=== PATIENT | female | born 1935 | race Caucasian/White ===

== ENCOUNTER 2016-12-15 06:47 | Inpatient (IN) ==
[2016-12-11 13:48] LABS: Basophils # (Auto) 0 K/mcL (0.0-0.3); Basophils % (Auto) 0.5 % (0.0-2.0); Eosinophils # (Auto) 0.1 K/mcL (0.0-0.7); Eosinophils % (Auto) 1.8 % (0.0-7.0); Granulocytes % (Auto) 77.8 % (38.0-78.0); Lymphocytes # (Auto) 0.9 K/mcL (1.5-4.8); Lymphocytes % (Auto) 11.2 % (15.5-49.0); Mean Cell Volume 88.3 fL (80.0-100.0); Mean Corpuscular HGB Conc 32.6 g/dL (31.0-36.0); Mean Corpuscular Hemoglobin 28.8 pg (26.0-34.0); Monocytes # (Auto) 0.7 K/mcL (0.1-0.9); Monocytes % (Auto) 8.7 % (1.0-12.0); Platelet Count 301 K/mcL (140-440); RBC 4.34 M/mcL (4.00-5.20); Red Cell Distribution Width 15.7 % (11.5-14.5)
[2016-12-11 14:05] LABS: Appearance,Urine CLEAR; Bilirubin,Urine NEG (NEG); Color,Urine YELLOW; Glucose,Urine (UA) NEGATIVE (NEG); Leukocyte Esterase,Urine NEG /uL (NEG); Nitrate,Urine NEG (NEG); Protein,Urine NEG (NEG); Specific Gravity,Urine 1.013 (1.000-1.035); Urine Blood NEG mg/dL (<0.03); Urobilinogen,Urine NEG (NEG)
[2016-12-11 14:06] LABS: Blood Urea Nitrogen 10 mg/dl (8-23)
[~2016-12-15 06:47] MED LIST: ACETAMINOPHEN 500 MG TABLET PO SCH; CELECOXIB 200 MG CAPSULE PO SCH; PREGABALIN 75 MG CAPSULE PO SCH; ceFAZolin 1 GM VIAL IV SCH; oxyCODONE 10 MG TAB.ER.12H PO SCH
[2016-12-15] MEDS ORDERED: GLYCOPYRROLATE 0.2 MG/ML VIAL IV ONE (11:15)
[2016-12-15] MEDS ORDERED: ePHEDrine 50 MG/ML AMPUL IV ONE (11:15)
[2016-12-15] MEDS ORDERED: PHENYLEPHRINE 10 MG/ML VIAL IV ONE (11:15)
[2016-12-15] MEDS ORDERED: fentaNYL 250 MCG/5 ML VIAL IV ONE (11:15)
[2016-12-15] MEDS ORDERED: MIDAZOLAM 5 MG/5 ML VIAL IV ONE (11:15)
[2016-12-15] MEDS ORDERED: ONDANSETRON 4 MG/2 ML VIAL IV ONE (11:15)
[2016-12-15] MEDS ORDERED: DEXAMETHASONE 10 MG/ML VIAL IV ONE (11:15)
[2016-12-15] MEDS ORDERED: PROPOFOL 200 MG/20 ML VIAL IV ONE (11:15)
[2016-12-15] MEDS ORDERED: LIDOCAINE HCL/PF 100 MG/5 ML SYRINGE IV ONE (11:15)
[2016-12-15] MEDS ORDERED: GENTAMICIN SULFATE 800 MG/20 ML VIAL IR ONE (11:39)
[2016-12-15] MEDS ORDERED: LACTATED RINGERS 250 ML IV PRN (12:25)
[2016-12-15] MEDS ORDERED: METHOCARBAMOL 1,000 MG/10 ML VIAL IV PRN (12:25)
[2016-12-15] MEDS ORDERED: MEPERIDINE 25 MG/ML SYRINGE IV PRN (12:25)
[2016-12-15] MEDS ORDERED: IPRATROPIUM/ALBUTEROL 3 ML AMPUL.NEB NEB PRN (12:25)
[2016-12-15] MEDS ORDERED: fentaNYL 100 MCG/2 ML VIAL IV PRN (12:25)
[2016-12-15] MEDS ORDERED: ACETAMINOPHEN 1,000 MG/100 ML BOTTLE IV ONE (12:25)
[2016-12-15] MEDS ORDERED: BENZOCAINE/MENTHOL 1 LOZENGE PO PRN ×2 (12:25→13:54)
[2016-12-15] MEDS ORDERED: diphenhydrAMINE 50 MG/ML VIAL IV PRN (12:25)
[2016-12-15] MEDS ORDERED: ONDANSETRON 4 MG/2 ML VIAL IV PRN ×2 (12:25→13:54)
[2016-12-15] MEDS ORDERED: NALOXONE HCL 0.4 MG/ML VIAL IV PRN (12:25)
[2016-12-15] MEDS ORDERED: FLUMAZENIL 0.1 MG/ML ML IV PRN (12:25)
[2016-12-15] MEDS ORDERED: LACTATED RINGERS 1,000 ML IV SCH (12:30)
[2016-12-15] MEDS ORDERED: TEMAZEPAM 15 MG CAPSULE PO PRN (13:54)
[2016-12-15] MEDS ORDERED: MAGNESIUM HYDROXIDE 30 ML ORAL.SUSP PO PRN (13:54)
[2016-12-15] MEDS ORDERED: POLYETHYLENE GLYCOL 3350 17 GM PACKET PO PRN (13:54)
[2016-12-15] MEDS ORDERED: KETOROLAC 15 MG/ML VIAL IV PRN (13:54)
[2016-12-15] MEDS ORDERED: FLEETS ADULT ENEMA PR PRN (13:54)
[2016-12-15] MEDS ORDERED: IBUPROFEN 400 MG TABLET PO PRN (13:54)
[2016-12-15] MEDS ORDERED: BISACODYL 10 MG SUPP.RECT PR PRN (13:54)
[2016-12-15] MEDS ORDERED: TRANEXAMIC ACID 1,000 MG/10 ML VIAL IV ONE (13:54)
[2016-12-15] MEDS ORDERED: HYDROmorphone 2 MG/ML SYRINGE IV PRN (13:54)
--- NOTE | 2016-12-15 13:54 | Brief Operative Note ---
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
[2016-12-15] MEDS ORDERED: WARFARIN 2 MG TABLET PO SCH (14:00)
--- NOTE | 2016-12-15 15:14 | XRay Report ---
HISTORY: Reason for Exam:Post-Op Total Hip FINDINGS: There is a comminuted intertrochanteric fracture the proximal femur. No callus is formed. There is a well-positioned left total hip prosthesis. The prosthesis has been revised since the earlier intraoperative film done earlier on the same date. In the right hip there is arthritis with a ring of spurs on the margin of the femoral head and mild narrowing of the medial aspect of the joint. No prior studies available for comparison. IMPRESSION: Well-positioned left hip prosthesis Comminuted fracture of the proximal left femur Interpreted and Authenticated by: Virgilio Eubanks 12/15/16
[2016-12-15] MEDS: 0.45 % SODIUM CHLORIDE 1,000 ML IV SCH (15:35)
[2016-12-15] MEDS: ceFAZolin 1 GM VIAL IV SCH (16:17)
[2016-12-15] MEDS: 0.9 % SODIUM CHLORIDE 10 ML SYRINGE IV SCH (16:18)
[2016-12-15] MEDS: WARFARIN 2.5 MG TABLET PO SCH (16:19)
[2016-12-15] MEDS: ASPIRIN 81 MG TAB.CHEW PO SCH (17:53)
[2016-12-15] MEDS: PRAMIPEXOLE 0.25 MG TABLET PO SCH (20:09)
[2016-12-15] MEDS: SENNOSIDES 1 TABLET PO SCH (20:09)
[2016-12-15] MEDS: DOCUSATE SODIUM 100 MG CAPSULE PO SCH (20:09)
[2016-12-15] MEDS: METOPROLOL TARTRATE 25 MG TABLET PO SCH (20:09)
[2016-12-15] MEDS: SIMVASTATIN 20 MG TABLET PO SCH (20:09)
[2016-12-15] MEDS ORDERED: TEMAZEPAM 15 MG CAPSULE PO SCH (21:00)
[2016-12-15] MEDS ORDERED: ASPIRIN 325 MG ENTERIC COATED TABLET PO SCH (21:00)
[2016-12-16] MEDS: HYDROCODONE/APAP 7.5/325MG TABLET PO PRN ×4 (01:32→19:15)
[2016-12-16] MEDS: 0.45 % SODIUM CHLORIDE 1,000 ML IV SCH ×2 (01:33→11:50)
[2016-12-16] MEDS ORDERED: ceFAZolin 1 GM VIAL ONE (01:40)
[2016-12-16] MEDS: ceFAZolin 1 GM VIAL IV SCH (01:40)
[2016-12-16] MEDS: 0.9 % SODIUM CHLORIDE 10 ML SYRINGE IV SCH ×4 (01:53→22:30)
--- NOTE | 2016-12-16 07:14 | Orthopedic Progress Note ---
Subjective Patient information: Note initiated : 12/16/16 at 7:13 am Service Date, if different from initiated Date: [] Patient: Norma Mclaughlin 81 y/o F admitted on 12/15/16 for Left Total Hip Arthroplasty. Chief Complaint: [Pt is stable this morning on post operative day 1 without any significant concerns or complaints. Patients vital signs have remained stable. Patients dressing is dry and exhibits a grossly intact neurovascular and neuromotor exam. Patients 10 point ROS is otherwise negative. ] Objective Vital signs: Vital Signs Temp Pulse Resp BP Pulse Ox 12/16/16 04:34 95 12/16/16 04:00 97.8 F 64 14 134/70 95 12/16/16 03:00 97 12/16/16 01:00 97 12/15/16 23:44 97.4 F 70 14 100/62 97 12/15/16 23:00 97 12/15/16 20:23 97 12/15/16 20:22 97 12/15/16 20:00 97.6 F 84 14 112/67 97 12/15/16 19:29 97 12/15/16 17:05 101/61 96 12/15/16 17:00 96 12/15/16 16:35 101/64 98 12/15/16 16:05 101/64 97 12/15/16 15:54 96 12/15/16 15:50 96/63 96 12/15/16 15:35 110/74 97 12/15/16 15:20 124/78 96 12/15/16 15:05 121/60 96 12/15/16 14:54 97.9 F 80 14 145/84 96 12/15/16 14:40 97.9 F 80 15 140/73 96 12/15/16 14:25 72 12 130/70 100 12/15/16 14:20 72 12 120/65 96 12/15/16 14:15 70 12 114/55 97 12/15/16 14:10 97.0 F 67 12 100/53 97 Intake and Output 12/15/16 12/16/16 12/16/16 21:59 05:59 13:59 Intake Total 0 / 1910 1796 Output Total 600 / 600 75 / 75 Balance 1310 / 1310 1796 -75 / -75 Intake: IV 200 / 200 997 / 997 Sodium Chloride 0.45% 1, 997 / 997 000 ml @ 100 mls/hr IV . Q10H GARY Rx#:[id number] Lactated Ringers 1,000 ml 200 / 200 @ 20 mls/hr IV .Q24H GARY Rx#:[id number] Oral 210 / 210 800 / 800 IV - Manual Only 1500 / 1500 Output: Void Amount 75 / 75 Estimated Blood Loss 600 / 600 Other: # Voids 1 Weight 160 lb 8 oz Intake & Output: Intake & Output 12/15/16 12/16/16 12/16/16 21:59 05:59 13:59 Intake Total 1910 / 1910 1797 / 1797 Output Total 600 / 600 75 / 75 Balance 1310 / 1310 1797 / 1797 -75 / -75 Weight 160 lb 8 oz Intake: IV 200 / 200 997 / 997 Sodium Chloride 0.45% 1, 997 / 997 000 ml @ 100 mls/hr IV . Q10H GARY Rx#:[id number] Lactated Ringers 1,000 ml 200 / 200 @ 20 mls/hr IV .Q24H GARY Rx#:[id number] Oral 210 / 210 800 / 800 IV - Manual Only 1500 / 1500 Output: Void Amount 75 / 75 Estimated Blood Loss 600 / 600 Other: # Voids 1 Incision: Yes healing Incision clean and dry: Yes Dressing: Yes clean, Yes dry Weight bearing status: full Neurological exam IM: Yes motor sensory intact, Yes neurovascular intact Extremities exam IM: Yes Foot pink and warm, Yes neurovascular intact - Labs CBC & BMP: 12/16/16 05:30 12/11/16 11:55 Labs: Orthopedic Labs 12/15/16 12/11/16 07:32 11:56 POC PT 14.6 H PT 18.9 H POC INR 1.2 INR 1.5 H APTT 39 H 12/16/16 12/11/16 05:30 11:56 Hgb 12.5 Hct 27.2 L 38.3 Assessment and Plan (1) Hx of total hip arthroplasty Patient has been educated regarding wound care and dressings, follow up recommendations, and medication use. We will f/u with the patient within 2-3 weeks for wound check. Status: Acute
--- NOTE | 2016-12-16 07:17 | Discharge Summary ---
Ortho Discharge - NEEL - Patient Instructions Diet: Regular Diet Activity: activity as tolerated, weight bearing as tolerated Total Hip Protocol: Follow activity instructions as provided by Physical Therapy. Dressing Care: May shower in 3 days, Aquacel Ag - leave on for 5 days Patient Education: Total Hip Replacement (DC) Additional Instructions: Discharge Instructions: Do the exercises at home that physical therapy gave you. Take your prescription, photo ID, insurance cards, and current medication list with you to your first physical therapy appointment. Take your prescription to pickle water pump operator any medication or equipment (such as walker, crutches, toilet riser or C.P.M.) Wear comfortable clothing for your physical therapy. Weight bearing as tolerated. If you have the Aquacel Ag dressing, leave in place for 7 days then remove. If dressing becomes soiled (turns black), remove and use gauze 4x4 dressing and silvasorb ointment and change daily. Keep incision clean and dry. If you have Dermabond (a dressing with a mesh-like appearance), leave open to air. You may start showering on post op day #2. The Dermabond dressing can get wet, do not scrub dressing. Pat dry. To avoid constipation while taking any narcotic pain medication, take an over the counter stool softener/laxative. Use your Cryocuff or ice packs as directed, on for 20 minutes at a time throughout the day. This and elevation will help with pain and swelling. Call your physician for fevers above 100.5 or pain not controlled by medication. Your prescriptions are with your discharge information. Some medications were electronically transmitted to your pharmacy of choice. - Problem Maintenance (1) Hx of total hip arthroplasty Status: Acute - Follow Up Plan Follow Up Appointments: Parish Lorenzana MD [Physician] - 12/30/16 1:40 pm Disposition: Xfer SNF Prognosis: Good Rehab Potential: Fair I certify that the patient requires SNF services: Yes Overall status at discharge: patient is progressing back to baseline - Orders For Discharge Prescriptions: Docusate Sodium [Colace] 100 mg PO BID #60 capsule Hydrocodone/APAP 7.5/325Mg [[place] 7.5/325Mg] 1 - 2 tab PO Q4HP PRN #75 tablet PRN Reason: Pain
[2016-12-16] MEDS: OMEPRAZOLE 20 MG CAPSULE PO SCH (07:29)
[2016-12-16] MEDS: AMIODARONE HCL 200 MG TABLET PO SCH (08:09)
[2016-12-16] MEDS ORDERED: POLYETHYLENE GLYCOL 3350 17 GM PACKET PO SCH (09:00)
[2016-12-16] MEDS: LORATADINE 10 MG TABLET PO SCH (09:31)
[2016-12-16] MEDS: ASPIRIN 81 MG TAB.CHEW PO SCH (09:32)
[2016-12-16] MEDS: METOPROLOL TARTRATE 25 MG TABLET PO SCH ×2 (09:32→19:15)
[2016-12-16] MEDS: DOCUSATE SODIUM 100 MG CAPSULE PO SCH ×2 (09:32→19:15)
[2016-12-16] MEDS: SERTRALINE 50 MG TABLET PO SCH (09:40)
[2016-12-16] MEDS ORDERED: WARFARIN 2 MG TABLET PO SCH (14:00)
[2016-12-16] MEDS: SENNOSIDES 1 TABLET PO SCH (19:14)
[2016-12-16] MEDS: PRAMIPEXOLE 0.25 MG TABLET PO SCH (19:14)
[2016-12-16] MEDS: SIMVASTATIN 20 MG TABLET PO SCH (19:15)
[2016-12-16] MEDS: traMADol 50 MG TABLET PO PRN (22:29)
[2016-12-17] MEDS: 0.45 % SODIUM CHLORIDE 1,000 ML IV SCH ×3 (01:05→14:20)
[2016-12-17] MEDS: ACETAMINOPHEN 325 MG TABLET PO PRN (02:18)
[2016-12-17] MEDS: 0.9 % SODIUM CHLORIDE 10 ML SYRINGE IV SCH ×3 (06:30→20:37)
--- NOTE | 2016-12-17 07:07 | Orthopedic Progress Note ---
Subjective Patient information: Note initiated : 12/17/16 at 7:05 am Service Date, if different from initiated Date: [] Patient: Norma Mclaughlin 81 y/o F admitted on 12/15/16 for Left Total Hip Arthroplasty. Chief Complaint: [STILL CONFUSSED AND NEW XRAY TO SEE IF HIP DISLOCATED DONE] Objective Vital signs: Vital Signs Temp Pulse Pulse Pulse Resp BP Pulse Ox 12/17/16 05:38 93 12/17/16 04:00 97.1 F 69 12 101/59 91 12/17/16 02:00 84 69 12/16/16 23:43 97.7 F 75 12 135/67 92 12/16/16 22:00 92 12/16/16 20:00 97.5 F 80 12 140/63 92 12/16/16 17:00 94 12/16/16 15:47 97.4 F 16 127/73 98 12/16/16 15:00 95 12/16/16 13:00 95 12/16/16 12:00 97.7 F 20 134/75 95 12/16/16 11:00 88 L 12/16/16 09:00 97 12/16/16 08:00 97 12/16/16 07:32 97.6 F 84 14 112/67 97 12/16/16 07:24 92 12/16/16 07:23 60 92 Intake and Output 12/16/16 12/17/16 12/17/16 21:59 05:59 13:59 Intake Total 0 / 0 200 / 200 Output Total 850 / 850 1200 / 1200 250 / 250 Balance -850 / -850 -1000 / -1000 -250 / -250 Intake: Oral 0 / 0 200 / 200 Output: Urine Catheter Amount 400 / 400 250 / 250 Void Amount 850 / 850 800 / 800 Uretheral (Rashid) 650 / 650 Other: Weight 169 lb Intake & Output: Intake & Output 12/16/16 12/17/16 12/17/16 21:59 05:59 13:59 Intake Total 0 / 0 200 / 200 Output Total 850 / 850 1200 / 1200 250 / 250 Balance -850 / -850 -1000 / -1000 -250 / -250 Weight 169 lb Intake: Oral 0 / 0 200 / 200 Output: Urine Catheter Amount 400 / 400 250 / 250 Void Amount 850 / 850 800 / 800 Uretheral (Rashid) 650 / 650 Incision: Yes healing Incision clean and dry: Yes Dressing: Yes clean Weight bearing status: full Neurological exam IM: Yes abnormal gait Extremities exam IM: Yes Foot pink and warm (CONFUSED WITH NEW XRAYS SHOWING NO HIP DISLOCATION MUST US ABD PILLOW) - Labs CBC & BMP: 12/16/16 05:30 12/11/16 11:55 Labs: Orthopedic Labs 12/15/16 12/11/16 07:32 11:56 POC PT 14.6 H PT 18.9 H POC INR 1.2 INR 1.5 H APTT 39 H 12/16/16 12/11/16 05:30 11:56 Hgb 12.5 Hct 27.2 L 38.3
[2016-12-17] MEDS: OMEPRAZOLE 20 MG CAPSULE PO SCH (07:30)
--- NOTE | 2016-12-17 08:04 | XRay Report ---
HISTORY: Reason for Exam:Possible left hip dislocation FINDINGS: There is a well-positioned left total hip prosthesis. There is no dislocation. There is a subacute ununited comminuted intertrochanteric fracture which also extends into the subtrochanteric region. In the proximal shaft of the femur there is a partially healed transverse fracture. The fractures have not changed in appearance since recent study done on 12/15/16. No new fracture has developed. There is moderate arthritis in the right hip. Gas is present in the soft tissues in left upper thigh due to the recent surgery. IMPRESSION: Stable alignment of the comminuted fracture in the proximal femur No dislocation or new fracture since 12/15/16 Interpreted and Authenticated by: Virgilio Eubanks 12/17/16
[2016-12-17] MEDS: AMIODARONE HCL 200 MG TABLET PO SCH (10:00)
[2016-12-17] MEDS: DOCUSATE SODIUM 100 MG CAPSULE PO SCH ×2 (10:00→20:37)
[2016-12-17] MEDS: METOPROLOL TARTRATE 25 MG TABLET PO SCH ×2 (10:00→20:37)
[2016-12-17] MEDS: LORATADINE 10 MG TABLET PO SCH (10:00)
[2016-12-17] MEDS: SERTRALINE 50 MG TABLET PO SCH (10:00)
[2016-12-17] MEDS: ASPIRIN 81 MG TAB.CHEW PO SCH (10:00)
[2016-12-17] MEDS: WARFARIN 2.5 MG TABLET PO SCH (14:20)
[2016-12-17] MEDS: traMADol 50 MG TABLET PO PRN ×2 (16:40→22:45)
[2016-12-17] MEDS: PRAMIPEXOLE 0.25 MG TABLET PO SCH (20:37)
[2016-12-17] MEDS: SIMVASTATIN 20 MG TABLET PO SCH (20:37)
[2016-12-17] MEDS: SENNOSIDES 1 TABLET PO SCH (20:37)
[2016-12-18] MEDS: ACETAMINOPHEN 325 MG TABLET PO PRN (03:33)
[2016-12-18] MEDS: 0.9 % SODIUM CHLORIDE 10 ML SYRINGE IV SCH ×2 (05:13→05:17)
[2016-12-18] MEDS: OMEPRAZOLE 20 MG CAPSULE PO SCH (07:40)
[2016-12-18] MEDS: SERTRALINE 50 MG TABLET PO SCH (09:04)
[2016-12-18] MEDS: ASPIRIN 81 MG TAB.CHEW PO SCH (09:05)
[2016-12-18] MEDS: AMIODARONE HCL 200 MG TABLET PO SCH (09:05)
[2016-12-18] MEDS: METOPROLOL TARTRATE 25 MG TABLET PO SCH (09:06)
[2016-12-18] MEDS: LORATADINE 10 MG TABLET PO SCH (09:06)
[2016-12-18] MEDS: DOCUSATE SODIUM 100 MG CAPSULE PO SCH (09:06)
--- NOTE | 2016-12-26 13:02 | Operative Note ---
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 PROCEDURE: Left hip hardware removal which consisted of a Park and Nephew reconstruction nail as well as a revision cemented stem and cup and total hip arthroplasty. SURGEON: Parish Lorenzana MD RN ED: Enzo Elliott PA-C ANESTHESIA: General LMA anesthesia. COMPLICATIONS: None. DESCRIPTION OF PROCEDURE: The patient was brought to the operating room and put to sleep with general LMA anesthesia. Once we confirmed the operative side was the left side with initials, timeout x-rays and consent form we then proceeded with a total hip arthroplasty and hardware removal. She was sterilely prepped and draped left lower extremity. We made a superior posterior approach to the hip and identified the nail and removed the set screw and then the two screws in the head by the cutting the neck. Once this was done, we removed the distal screw and then tapped out the stem. We irrigated. We then exposed the joint. We removed some long osteophytes anteriorly heterotopic bone, reamed the cup up to a size 53 cup. We implanted a 54 cup with screws, 20 and a 25 mm screw and a dual mobility liner. We broached up for the size 7 stem. I took an x-ray with the size 7 stem. This seemed to give good leg length and alignment. At this point, we proceeded with cementing a stem. We cemented a long curved 200 mm size 7 cemented stem for the left hip with 20 degrees of anteversion. We then trialed the +10 neck length. This seemed to be appropriate, though she would sublux and this started to come out of the joint when an abducted past midline at 45 degrees. At that point we took more bone and spurs anteriorly, repositioned the cup in 25 degrees of anteversion, or 30 degrees and 40 degrees of inclination. We placed two more screws, a 25 mm and a 40 mm screw which gave good fixation and placed a 10 degree hooded poly liner and then trialed the 36 mm +10 neck length. This seemed to be very stable up to about 50 to 60 degrees with a very firm endpoint. With the knee straight ahead it could go up to 90 degrees. We irrigated thoroughly. We then placed a +10 neck length, 36 mm ball and repaired the capsule for additional constraint. The patient tolerated this well. There was no complication. We irrigated thoroughly, closed the fascial layer with a Stratafix suture and the skin was closed with 0 Vicryl and 2-0 Vicryl and jessica superficially. The other wounds were closed with 2-0 Vicryl and jessica and patient tolerated this well. The patient lost about 200 mL of blood. RBH:rex Job ID: [id number] Doc ID: [id number] Parish Lorenzana MD
--- NOTE | 2017-01-01 12:06 | Discharge Summary ---
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 DISCHARGE DIAGNOSES: 1. 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 2. Left total hip arthroplasty. HISTORY OF PRESENT ILLNESS: This pleasant female presented for operative care due to failed nonoperative care following a short intramedullary nail fixation for a prior femur fracture that went on to heal as a nonpainful union fracture with progressive degenerative osteoarthritis of her left hip. PROCEDURE PERFORMED: Removal of hardware and revision left total hip arthroplasty. Procedure went without complications. HOSPITAL COURSE: Following the procedure the patient was taken to recovery in stable condition then transferred to the hospital floor in stable condition. Her hospital course remained stable, including normal vital signs and labs throughout her stay. She progressed nicely but did not meet discharge criteria to home and was discharged to shelter facility thereafter. DISCHARGE PHYSICAL EXAMINATION: VITAL SIGNS: Stable as above. GENERAL: Patient is awake, alert and oriented x3. HEENT: Head was normocephalic. NECK: Supple, no adenopathy or thyromegaly. CHEST: CTA, no wheezing, rhonchi or rales. HEART: NSR, no gallops, rubs or murmurs. MUSCULOSKELETAL: Lower extremities revealed grossly intact motor exam. NEUROLOGIC: Deep tendon response and light touch, motor, neurosensory exam was stable. SKIN: The incision was intact and the dressing had been changed to the Acticoat dressing. There were no abnormal skin markings, lesions, erythema, rashes or other skin breakdown. DISCHARGE INSTRUCTIONS/MEDICATIONS: The patient received our standard written discharge instruction sheet. These instructions included information regarding weightbearing status, activity level, diet, wound care, physical therapy instructions, bathing restrictions, shower recommendations, follow-up guidelines, driving restrictions and monitoring the wound for signs of infection that could include but not necessarily to fevers above 101.5, sweats, chills, redness, increased pain or drainage. Should any of these occur the patient was educated to contact our office at once. MEDICATIONS: The patient was restarted on normal primary care medications. Patient was also prescribed [place] 10/325 mg with instructions for 1 to 2 tabs by mouth every 4 to 6 hours as needed for pain, quantity 75 with 2 refills. The patient will be placed on 325 mg aspirin, 1 a day for 30 days post surgery. [facility] will monitor the patient's PT/INR. FOLLOWUP: Patient will follow up at [facility] 2 weeks from surgery for a postop wound check and staple removal. They will be able to certain follow up sooner with any problems or concerns. [id number]:ramón Job ID: [id number] Doc ID: [id number] Enzo Elliott PA-C
== END 2016-12-18 10:50 | DRG 470 ==
LOC: MEDSUR 06:47
PROVIDERS: ADMIT Orthopaedic Surgery; ATTEND Orthopaedic Surgery

== ENCOUNTER 2017-07-20 07:44 | Inpatient (IN) ==
[2017-07-16 18:03] LABS: Basophils # (Auto) 0.1 K/mcL (0.0-0.3); Basophils % (Auto) 0.9 % (0.0-2.0); Blood Urea Nitrogen 20 mg/dl (8-23); Eosinophils # (Auto) 0.1 K/mcL (0.0-0.7); Eosinophils % (Auto) 1.6 % (0.0-7.0); Granulocytes % (Auto) 71.5 % (38.0-78.0); Lymphocytes # (Auto) 1.1 K/mcL (1.5-4.8); Mean Cell Volume 89.8 fL (80.0-100.0); Mean Corpuscular Hemoglobin 30.6 pg (26.0-34.0); Monocytes # (Auto) 0.6 K/mcL (0.1-0.9); Platelet Count 211 K/mcL (140-440); RBC 4.22 M/mcL (4.00-5.20); Red Cell Distribution Width 12.7 % (11.5-14.5)
[~2017-07-20 07:44] MED LIST changes: +KETOROLAC 30 MG, ROPIVACAINE HCL/PF 49.5 ML, EPINEPHrine 0.5 MG, 0.9 % SODIUM CHLORIDE ... IJ SCH
[2017-07-20] MEDS ORDERED: LIDOCAINE HCL/PF 100 MG/5 ML SYRINGE IV ONE (10:25)
[2017-07-20] MEDS ORDERED: DEXAMETHASONE 10 MG/ML VIAL IV ONE (10:25)
[2017-07-20] MEDS ORDERED: KETAMINE 100 MG/ML ML IV ONE (10:25)
[2017-07-20] MEDS ORDERED: MIDAZOLAM 2 MG/2 ML VIAL IV ONE (10:25)
[2017-07-20] MEDS ORDERED: GLYCOPYRROLATE 0.2 MG/ML VIAL IV ONE (10:25)
[2017-07-20] MEDS ORDERED: ePHEDrine 50 MG/ML AMPUL IV ONE (10:25)
[2017-07-20] MEDS ORDERED: ONDANSETRON 4 MG/2 ML VIAL IV ONE (10:25)
[2017-07-20] MEDS ORDERED: PROPOFOL 200 MG/20 ML VIAL IV ONE (10:25)
[2017-07-20] MEDS ORDERED: PHENYLEPHRINE 10 MG/ML VIAL IV ONE (10:25)
[2017-07-20] MEDS ORDERED: fentaNYL 100 MCG/2 ML VIAL IV ONE (10:25)
[2017-07-20] MEDS ORDERED: BUPIVACAINE W/EPI 0.5% 50 ML VIAL IJ ONE (10:25)
[2017-07-20] MEDS ORDERED: TRANEXAMIC ACID 1,000 MG/10 ML VIAL IV ONE (10:25)
[2017-07-20] MEDS ORDERED: BENZOCAINE/MENTHOL 1 LOZENGE PO PRN ×2 (11:00→12:11)
[2017-07-20] MEDS ORDERED: IPRATROPIUM/ALBUTEROL 3 ML AMPUL.NEB NEB PRN (11:00)
[2017-07-20] MEDS ORDERED: ONDANSETRON 4 MG/2 ML VIAL IV PRN ×2 (11:00→12:11)
[2017-07-20] MEDS ORDERED: METHOCARBAMOL 1,000 MG/10 ML VIAL IV PRN (11:00)
[2017-07-20] MEDS ORDERED: NALOXONE HCL 0.4 MG/ML VIAL IV PRN (11:00)
[2017-07-20] MEDS ORDERED: MEPERIDINE 25 MG/ML SYRINGE IV PRN (11:00)
[2017-07-20] MEDS ORDERED: FLUMAZENIL 0.1 MG/ML ML IV PRN (11:00)
[2017-07-20] MEDS ORDERED: PROMETHAZINE 25 MG/ML VIAL IV PRN (11:00)
[2017-07-20] MEDS ORDERED: fentaNYL 100 MCG/2 ML VIAL IV PRN (11:00)
[2017-07-20] MEDS ORDERED: LACTATED RINGERS 250 ML IV PRN (11:00)
[2017-07-20] MEDS ORDERED: LACTATED RINGERS 1,000 ML IV SCH (11:00)
[2017-07-20] MEDS ORDERED: GENTAMICIN SULFATE 800 MG/20 ML VIAL IR ONE (11:11)
[2017-07-20] MEDS ORDERED: MAGNESIUM HYDROXIDE 30 ML ORAL.SUSP PO PRN (12:11)
[2017-07-20] MEDS ORDERED: TRANEXAMIC ACID 1,000 MG/10 ML VIAL IV SCH (12:11)
[2017-07-20] MEDS ORDERED: POLYETHYLENE GLYCOL 3350 17 GM PACKET PO PRN (12:11)
[2017-07-20] MEDS ORDERED: HYDROmorphone 2 MG/ML VIAL IV PRN (12:11)
[2017-07-20] MEDS ORDERED: BISACODYL 10 MG SUPP.RECT PR PRN (12:11)
[2017-07-20] MEDS ORDERED: FLEETS ADULT ENEMA PR PRN (12:11)
--- NOTE | 2017-07-20 12:41 | XRay Report ---
CLINICAL INFORMATION: Reason for Exam:Post-Op Total Knee COMPARISON: None. FINDINGS: Total knee prostheses is anatomically aligned. No osseous abnormality. Particular gas and soft tissue swelling seen as expected IMPRESSION: Negative Interpreted and Authenticated by: Carlos Moyer 07/20/17
[2017-07-20] MEDS: 0.45 % SODIUM CHLORIDE 1,000 ML IV SCH ×2 (13:39→23:44)
[2017-07-20] MEDS: 0.9 % SODIUM CHLORIDE 10 ML SYRINGE IV SCH ×2 (13:40→21:16)
--- NOTE | 2017-07-20 15:34 | Brief Operative Note ---
Date of procedure: 07/20/17 Pre-op diagnosis: left knee djd Post-op diagnosis: same Procedure: left tka robotic Grafts/Implants: Yes Anesthesia: GETA Complications Description: 07/20/17 15:35 none Surgeon: Parish Lorenzana Manager Chinese: Enzo Elliott Estimated blood loss (cc): 20 Tourniquet Time (Minutes): 50 Specimens Removed/Pathology: none sent Condition: stable Disposition: PACU
[2017-07-20] MEDS: ceFAZolin 1 GM VIAL IV SCH (18:08)
[2017-07-20] MEDS: KETOROLAC 15 MG/ML VIAL IV SCH ×2 (18:08→23:40)
[2017-07-20] MEDS ORDERED: TEMAZEPAM 15 MG CAPSULE PO PRN (21:00)
[2017-07-20] MEDS: SENNOSIDES 1 TABLET PO SCH (21:14)
[2017-07-20] MEDS: ASPIRIN 325 MG ENTERIC COATED TABLET PO SCH (21:14)
[2017-07-20] MEDS: DOCUSATE SODIUM 100 MG CAPSULE PO SCH (21:14)
[2017-07-21] MEDS: ceFAZolin 1 GM VIAL IV SCH (02:07)
[2017-07-21] MEDS: ACETAMINOPHEN 325 MG TABLET PO PRN (04:24)
[2017-07-21] MEDS: KETOROLAC 15 MG/ML VIAL IV SCH ×3 (05:39→18:55)
[2017-07-21] MEDS: 0.9 % SODIUM CHLORIDE 10 ML SYRINGE IV SCH ×3 (05:40→20:45)
--- NOTE | 2017-07-21 07:29 | Operative Note ---
DATE OF OPERATION: 07/20/2017 PREOPERATIVE DIAGNOSIS: Left knee degenerative arthritis, severe. POSTOPERATIVE DIAGNOSIS: Left knee degenerative arthritis, severe. PROCEDURE: Left total knee arthroplasty using the GENI robot. SURGEON: Parish Lorenzana MD ELECTRONIC EQUIPMENT SET UP OPERATOR: Enzo Elliott PA-C ANESTHESIA: Spinal with IV sedation. COMPLICATIONS: None. TOURNIQUET TIME: Approximately 60 minutes. ESTIMATED BLOOD LOSS: Quite significant because of varicose veins. She had approximately 250 mL of blood loss, no blood products were given. DESCRIPTION OF PROCEDURE: The patient was brought to the operating room and put to sleep with general LMA anesthesia. We confirmed the left leg to be the operative site. Tranexamic acid and preop antibiotics were given and then we inflated the tourniquet to 250 pounds of pressure. We made midline incision, but significant bleeding occurred. We then deflated the tourniquet and reinflated it raising the tourniquet to 350 pounds of pressure. This seemed to stop the bleeding eventually. We irrigated thoroughly and then proceeded with the case, two pins above and below performed. We registered the 30 points on the femur and the tibia. We balanced the knee at 15 and 90 degrees, adjusted the implants to balance her anatomy and we brought in the robot and registered the robot and femur. We then made our tibial cut and femoral cuts using the robot. We then used Keenan components. Her bone was very poor quality. For this reason all components were cemented. The patella was significantly worn as well. This was cut to 13 mm and then we cemented a 33 mm patellar button. We cemented all these components into place. These were Keenan components, removed excess cement. After thorough irrigation we removed the pins, closed the portals with 4-0 Nylon closed the skin with #1 Stratafix x2 sutures. We closed the skin with 2-0 Vicryl and jessica because of the poor skin quality. We placed a sterile bandage. The patient tolerated this well. RBH:kh Job ID: [id number] Doc ID: [id number] Parish Lorenzana MD
[2017-07-21] MEDS ORDERED: OMEPRAZOLE 20 MG CAPSULE PO SCH (07:30)
--- NOTE | 2017-07-21 07:39 | Orthopedic Progress Note ---
Subjective Patient information: Note initiated : 07/21/17 at 7:38 am Service Date, if different from initiated Date: [] Patient: Norma Mclaughlin 82 y/o F admitted on 07/20/17 for Arthroplasty, Knee, Total, Left [place]. Chief Complaint: [Pt is stable this morning on post operative day 1 without any significant concerns or complaints. Patients vital signs have remained stable. Patients dressing is dry and is grossly instact from a neurovascular and motor standpoint. Patients 10 point ROS is otherwise negative. ] Objective Vital signs: Vital Signs Temp Pulse Pulse Resp BP BP Pulse Ox 07/21/17 07:14 97.9 F 65 16 102/53 97 07/21/17 04:42 97.5 F 57 L 16 116/67 96 07/21/17 01:00 92 07/21/17 00:00 98.0 F 57 L 16 133/60 92 07/20/17 21:00 95 07/20/17 19:23 97.4 F 64 16 121/63 94 07/20/17 17:15 97 07/20/17 16:15 58 L 07/20/17 14:59 110/69 98 07/20/17 14:31 126/55 98 07/20/17 14:01 122/65 98 07/20/17 13:46 112/64 98 07/20/17 13:31 105/65 98 07/20/17 13:20 59 L 16 98 07/20/17 13:16 106/58 98 07/20/17 13:15 98 07/20/17 13:01 97.2 F 60 15 116/49 100 07/20/17 12:52 60 19 131/57 100 07/20/17 12:47 60 10 L 149/52 100 07/20/17 12:37 58 L 13 105/49 100 07/20/17 12:32 60 11 L 101/57 100 07/20/17 12:27 60 12 108/47 100 07/20/17 12:22 60 12 109/49 100 07/20/17 12:17 60 8 L 130/52 98 07/20/17 12:12 97.5 F 60 8 L 135/56 98 07/20/17 08:20 56 L 18 95 07/20/17 08:00 97.7 F 18 164/47 95 Intake and Output 07/20/17 07/21/17 07/21/17 21:59 05:59 13:59 Intake Total 1040 / 1040 1800 / 1800 Output Total 450 / 450 900 / 900 Balance 590 / 590 900 / 900 Intake: IV 1000 / 1000 Sodium Chloride 0.45% 1,000 ml 1000 / 1000 @ 100 mls/hr IV .Q10H GARY Rx#: [id number] Oral 1040 / 1040 800 / 800 Output: Void Amount 450 / 450 900 / 900 Other: Meal Dinner Percent of Meal Consumed 100% # Voids 1 1 Weight 161 lb 8 oz Intake & Output: Intake & Output 07/20/17 07/21/17 07/21/17 21:59 05:59 13:59 Intake Total 1040 / 1040 1800 / 1800 Output Total 450 / 450 900 / 900 Balance 590 / 590 900 / 900 Weight 161 lb 8 oz Intake: IV 1000 / 1000 Sodium Chloride 0.45% 1,000 ml 1000 / 1000 @ 100 mls/hr IV .Q10H GARY Rx#: [id number] Oral 1040 / 1040 800 / 800 Output: Void Amount 450 / 450 900 / 900 Other: Meal Dinner Percent of Meal Consumed 100% # Voids 1 1 Incision: Yes healing Incision clean and dry: Yes Dressing: Yes clean Weight bearing status: full Neurological exam IM: Yes motor sensory intact, Yes neurovascular intact Extremities exam IM: Yes Foot pink and warm, Yes neurovascular intact - Labs CBC & BMP: 07/21/17 05:24 07/16/17 15:40 Labs: Orthopedic Labs 07/16/17 15:40 PT 13.6 INR 1.0 APTT 34 07/21/17 07/16/17 05:24 15:40 Hgb 12.9 Hct 26.7 L 37.9 Assessment and Plan (1) Hx of total knee arthroplasty The patient has been educated regarding dressing care, Physical Therapy recommendations, home exercises, restrictions, and follow up appointments. The patient has had all necessary DME prescribed. The patient has remained stable during their hospital course. The patient was discharge with a stable exam. Status: Acute
--- NOTE | 2017-07-21 07:42 | Discharge Summary ---
Ortho Discharge - TKA - Patient Instructions Diet: Regular Diet Activity: activity as tolerated, ambulate with assistive device Total Knee Protocol: For Total Knee: Start ROM JEZ with stationary bike or rocking chair. Work on gaining full extension of knee. Posterior dislocation precautions provided. Hip abductor strengthening and gait training instructions provided. Apply Cryocuff as instructed. Dressing Care: May shower in 3 days, Aquacel Ag - leave on for 5 days Patient Education: Total Knee Replacement (DC) - Problem Maintenance (1) Hx of total knee arthroplasty Status: Acute - Follow Up Plan Follow Up Appointments: Enzo Elliott PA-C [Physician Load Dispatcher] - 08/04/17 10:40 am Disposition: Xfer SNF Prognosis: Good Rehab Potential: Good I certify that the patient requires SNF services: Yes Overall status at discharge: patient is progressing back to baseline - Orders For Discharge Prescriptions: Aspirin [Ecotrin] 325 mg PO BID #60 tab.ec Docusate Sodium [Colace] 100 mg PO BID #60 cap oxyCODONE/APAP [Percocet 5-325 mg] 1 - 2 tab PO Q4HP PRN #75 tab PRN Reason: Pain Level 3-6
[2017-07-21] MEDS ORDERED: SERTRALINE 100 MG TABLET PO SCH (09:00)
[2017-07-21] MEDS ORDERED: TRIAMTERENE/HYDROCHLOROTHIAZID 1 TABLET PO SCH ×2 (09:00)
[2017-07-21] MEDS: ASPIRIN 325 MG ENTERIC COATED TABLET PO SCH ×2 (11:01→20:45)
[2017-07-21] MEDS: DOCUSATE SODIUM 100 MG CAPSULE PO SCH ×2 (11:04→20:44)
[2017-07-21] MEDS: LORATADINE 10 MG TABLET PO SCH (11:05)
[2017-07-21] MEDS: POTASSIUM CHLORIDE 10 MEQ TABLET PO SCH ×2 (11:05→18:55)
[2017-07-21] MEDS ORDERED: POTASSIUM CHLORIDE 10 MEQ TABLET PO SCH (17:30)
[2017-07-21] MEDS: SENNOSIDES 1 TABLET PO SCH (20:44)
[2017-07-21] MEDS: ATORVASTATIN 20 MG TABLET PO SCH (20:45)
[2017-07-21] MEDS: oxyCODONE/APAP 5/325MG TABLET PO PRN (20:45)
[2017-07-21] MEDS: PRAMIPEXOLE 0.25 MG TABLET PO SCH (20:45)
[2017-07-21] MEDS ORDERED: ATORVASTATIN 20 MG TABLET PO SCH (21:00)
[2017-07-21] MEDS ORDERED: PRAMIPEXOLE 0.25 MG TABLET PO SCH (21:00)
[2017-07-22] MEDS: oxyCODONE/APAP 5/325MG TABLET PO PRN ×4 (01:19→17:03)
[2017-07-22] MEDS: KETOROLAC 15 MG/ML VIAL IV SCH ×3 (01:19→12:02)
[2017-07-22] MEDS: 0.9 % SODIUM CHLORIDE 10 ML SYRINGE IV SCH ×3 (05:19→20:33)
[2017-07-22] MEDS: OMEPRAZOLE 20 MG CAPSULE PO SCH (07:09)
[2017-07-22] MEDS ORDERED: OMEPRAZOLE 20 MG CAPSULE PO SCH (07:30)
[2017-07-22] MEDS ORDERED: SERTRALINE 100 MG TABLET PO SCH (09:00)
[2017-07-22] MEDS ORDERED: TRIAMTERENE/HYDROCHLOROTHIAZID 1 TABLET PO SCH (09:00)
[2017-07-22] MEDS ORDERED: LORATADINE 10 MG TABLET PO SCH ×2 (09:00)
[2017-07-22] MEDS: ASPIRIN 325 MG ENTERIC COATED TABLET PO SCH ×2 (09:48→20:32)
[2017-07-22] MEDS: NAPROXEN 250 MG TABLET PO SCH ×2 (09:48→17:03)
[2017-07-22] MEDS: TRIAMTERENE/HYDROCHLOROTHIAZID 1 TABLET PO SCH (09:48)
[2017-07-22] MEDS: POTASSIUM CHLORIDE 10 MEQ TABLET PO SCH ×2 (09:48→17:04)
[2017-07-22] MEDS: CALCIUM W/VIT D3 500 MG TABLET PO SCH (09:48)
[2017-07-22] MEDS: POLYETHYLENE GLYCOL 3350 17 GM PACKET PO SCH (09:48)
[2017-07-22] MEDS: DOCUSATE SODIUM 100 MG CAPSULE PO SCH ×2 (09:49→20:32)
[2017-07-22] MEDS: LORATADINE 10 MG TABLET PO SCH (09:49)
[2017-07-22] MEDS: SERTRALINE 50 MG TABLET PO SCH (09:49)
[2017-07-22] MEDS: VITAMIN D3 1,000 UNIT TABLET PO SCH (09:49)
[2017-07-22] MEDS: MULTIVIT,THER IRON,CA,FA & MIN 1 TABLET PO SCH (09:49)
[2017-07-22] MEDS: ATORVASTATIN 20 MG TABLET PO SCH (20:32)
[2017-07-22] MEDS: PRAMIPEXOLE 0.25 MG TABLET PO SCH (20:33)
[2017-07-22] MEDS: SENNOSIDES 1 TABLET PO SCH (20:33)
[2017-07-23] MEDS: ACETAMINOPHEN 325 MG TABLET PO PRN ×2 (03:34→09:25)
[2017-07-23] MEDS: 0.9 % SODIUM CHLORIDE 10 ML SYRINGE IV SCH (05:08)
[2017-07-23] MEDS: OMEPRAZOLE 20 MG CAPSULE PO SCH (08:00)
[2017-07-23] MEDS: NAPROXEN 250 MG TABLET PO SCH (08:19)
[2017-07-23] MEDS: POTASSIUM CHLORIDE 10 MEQ TABLET PO SCH (09:19)
[2017-07-23] MEDS: POLYETHYLENE GLYCOL 3350 17 GM PACKET PO SCH (09:23)
[2017-07-23] MEDS: TRIAMTERENE/HYDROCHLOROTHIAZID 1 TABLET PO SCH (09:24)
[2017-07-23] MEDS: ASPIRIN 325 MG ENTERIC COATED TABLET PO SCH (09:26)
[2017-07-23] MEDS: MULTIVIT,THER IRON,CA,FA & MIN 1 TABLET PO SCH (09:27)
[2017-07-23] MEDS: SERTRALINE 50 MG TABLET PO SCH (09:27)
[2017-07-23] MEDS: CALCIUM W/VIT D3 500 MG TABLET PO SCH (09:27)
[2017-07-23] MEDS: VITAMIN D3 1,000 UNIT TABLET PO SCH (09:27)
[2017-07-23] MEDS: LORATADINE 10 MG TABLET PO SCH (09:28)
[2017-07-23] MEDS: DOCUSATE SODIUM 100 MG CAPSULE PO SCH (09:28)
--- NOTE | 2017-08-06 08:56 | Discharge Summary ---
DATE OF ADMISSION: 07/20/2017 DATE OF DISCHARGE: 07/23/2017 ADMITTING DIAGNOSIS: Left knee degenerative osteoarthritis. DISCHARGE DIAGNOSIS: Left knee degenerative osteoarthritis with addition of left total knee arthroplasty with GENI robot. DISCHARGE CONDITION: Stable. CONSULTATIONS: None. PROCEDURE PERFORMED: Left total knee arthroplasty was completed on the date of admission. The procedure went without complications and there was minimal blood loss. Following the procedure the patient was taken to recovery room in stable condition. When deemed stable, was taken to the hospital floor for further observation and recovery. HISTORY OF PRESENT ILLNESS: This pleasant patient has exhausted conservative care measures in the office that has included trials with anti-inflammatories, pain medications, injections and physical therapy. The patient has discussed non-operative and operative options with Dr. Lorenzana at length. Due to the exhausting conservative measures the patient desired to proceed forth with operative care. HOSPITAL COURSE: The patient remained stable throughout the hospital course and exhibited normal neurovascular examinations throughout the stay. The patient worked with physical therapy per standard protocols. The patient had no incidents during the hospital course. The patient did not meet the discharge criteria to home and came from [facility], and was discharged back to [facility] in stable condition. DISCHARGE PHYSICAL EXAMINATION: VITAL SIGNS: Stable as above. GENERAL: Patient is awake, alert and oriented x3. HEENT: Head was normocephalic. NECK: Supple, no adenopathy or thyromegaly. CHEST: CTA, no wheezing, rhonchi or rales. HEART: NSR, no gallops, rubs or murmurs. MUSCULOSKELETAL: Lower extremities revealed grossly intact motor exam. NEUROLOGIC: Deep tendon response and light touch, motor, neurosensory exam was stable. SKIN: The incision was intact and the dressing had been changed to the Acticoat dressing. There were no abnormal skin markings, lesions, erythema, rashes or other skin breakdown. DISCHARGE INSTRUCTIONS/MEDICATIONS: The patient received our standard written discharge instruction sheet. These instructions included information regarding weightbearing status, activity level, diet, wound care, physical therapy instructions, bathing restrictions, shower recommendations, follow-up guidelines, driving restrictions and monitoring the wound for signs of infection that could include but not necessarily to fevers above 101.5, sweats, chills, redness, increased pain or drainage. Should any of these occur the patient was educated to contact our office at once. MEDICATIONS: The patient was restarted on normal primary care medications. Patient was also prescribed [place] 10/325 mg with instructions for 1 to 2 tabs by mouth every 4 to 6 hours as needed for pain, quantity 75 with 2 refills. The patient will be placed on 325 mg aspirin, 1 a day for 30 days post-surgery. [facility] will monitor the patient's PT/INR. FOLLOWUP: Patient will follow up at [facility] 2 weeks from surgery for a postop wound check and staple removal. They will be able to certain follow up sooner with any problems or concerns. [id number] Job ID: [id number] Doc ID: [id number] Enzo Elliott PA-C
== END 2017-07-23 12:00 | DRG 470 ==
LOC: MEDSUR 07:44
PROVIDERS: ADMIT Orthopaedic Surgery; ATTEND Orthopaedic Surgery